=== PATIENT | male | born 1995 | race Caucasian/White ===

== ENCOUNTER 2016-12-05 17:00 | Emergency (ER) | payer BC, OTHER ==
--- NOTE | 2016-12-05 17:29 | UC ---
Letha Cole Thomas, scribed for Bailey Vo MD on 12/05/16 at 1721 . Complaint Male HPI - HPI Summary HPI Summary: The patient is a 21 y/o M presenting to [facility] c/o a mass above his L testicle that he first noticed yesterday. There are no visible rashes on his skin. There is no concern for an STD. He had not had a previous experience like this. Pt states it is mobile and minimally tender when touches. No analgesia taken. Pt denies fevers, chills. He does not have a PCP. He does not shave. No penile discharge, odor, or itching. No lesions. Denies ongoing dysuria, hematuria. No fevers, chills. No back pain. Pt additionally complains of dysuria (once, beginning of stream). No pain with erection. PMHx: asthma. PSHx: none. SHx: former smoking, occasional drinking, no illicit drugs. FHx: something similar to what I have right now on scrotum (father). Patients medications are reviewed this visit. - History of Current Complaint Chief Complaint: UCGU Stated Complaint: MASS/LT TESTICLE Time Seen by Provider: 12/05/16 17:11 Hx Obtained From: Patient Onset/Duration: Lasting Days - first noticed 1 day ago, Still Present Timing: Constant, Lasting Hours Pain Intensity: 0 Pain Scale Used: 0-10 Numeric Location: Testicle - above L testicle Associated Signs And Symptoms: Positive: Dysuria. Negative: Back Pain, Fever, Penile Discharge - Allergies/Home Medications Allergies/Adverse Reactions: Allergies Allergy/AdvReac Type Severity Reaction Status Date / Time Amoxicillin Allergy Intermediate Hives Unverified 11/12/13 13:48 PMH/Surg Hx/FS Hx/Imm Hx Previously Healthy: No Respiratory History: Asthma - Surgical History Surgical History: None - Family History Known Family History: Positive: Other - POS: "something like a mass" on L testicle (father) - Social History Alcohol Use: Occasionally Substance Use Type: None Smoking Status (MU): Former Smoker Review of Systems Constitutional: Negative Skin: Negative Eyes: Negative ENT: Negative Respiratory: Negative Cardiovascular: Negative Gastrointestinal: Negative Genitourinary: Dysuria - once, beginning of stream, Other - POS: mass above left testicle, noticed yesterday Motor: Negative Neurovascular: Negative Musculoskeletal: Negative Neurological: Negative Psychological: Negative All Other Systems Reviewed And Are Negative: Yes Physical Exam Triage Information Reviewed: Yes Appearance: Well-Appearing, No Pain Distress, Well-Nourished Vital Signs: Initial Vital Signs Temp 99.5 F 12/05/16 17:05 Pulse 89 12/05/16 17:05 Resp 16 12/05/16 17:05 Pulse Ox 100 12/05/16 17:05 Vital Signs Reviewed: Yes Eye Exam: Normal Eyes: Negative: Discharge ENT: Positive: Hearing grossly normal Neck: Positive: Supple, Nontender Respiratory: Positive: No respiratory distress, No accessory muscle use Abdomen Description: Positive: Soft, Other: - genetalia exam with RN chapperi testes down b/l no hernia No discharge, lesions, odor non tender testes non tender epidymitis Pt with small, minimally tender mobile lesion medial, anterior aspect of left testicle no edema. Negative: Nontender, CVA Tenderness (R), CVA Tenderness (L), Distended, Guarding Bowel Sounds: Positive: Present Musculoskeletal Exam: Normal Musculoskeletal: Positive: Strength Intact Neurological Exam: Normal Psychological Exam: Normal Skin Exam: Normal Complaint Male Course/Dx - Course Course Of Treatment: Pt with mobile, minimally tender lesion on left testicle first noted yesterday. Pt without other symptoms or concerns. d/w pt at length - unable to get us today at [facility]. Pt does not have PCP for f/u. Pt given option to return to [facility] tomorrow vs go to ED tonight. Pt with work conflict tomorrow so will go to ED for study. Pt declined EMS transfer - Differential Dx/Diagnosis Provider Diagnoses: scrotal nodule Discharge - Discharge Plan Condition: Stable Disposition: TRANS [facility] Patient Education Materials: Testicle Pain (ED) Referrals: Ilene Singh MD [Primary Care Provider] - Additional Instructions: IT is recommended you go to the emergency department for an ultrasound and further evaluation of your left testicle. Alternatively you may return here tomorrow during normal business hours Okay to take Tylenol or ibuprofen as needed for pain and discomfort The documentation as recorded by the Letha mace Thomas accurately reflects the service I personally performed and the decisions made by , Bailey Vo MD.
== END 2016-12-05 17:32 | disposition short-term general hospital (02) ==
LOC: UCEAST 17:00
DX: N49.2 Inflammatory disorders of scrotum (principal)
CPT/HCPCS: 99212; G0463

== ENCOUNTER 2016-12-05 17:57 | Emergency (ER) | payer OTHER ==
[2016-12-05 19:13] LABS: Urine Bilirubin Negative (Negative); Urine Glucose Negative (Negative); Urine Nitrite Negative (Negative)
--- NOTE | 2016-12-05 19:32 | RAD ---
HISTORY: Testicular mass COMPARISONS: None TECHNIQUE: Multiple transverse and longitudinal ultrasound images were obtained of the scrotum, using grayscale, color Doppler, and spectral Doppler imaging. FINDINGS: RIGHT: RIGHT TESTICLE: The right testicle measures 4.4 x 2.3 x 3.2 cm. The right testicle is homogeneous in echotexture, without testicular parenchymal mass. Normal arterial and venous waveforms are identified within the right testicle on spectral Doppler imaging. RIGHT EPIDIDYMIS: The right epididymis measures 1.3 cm at the head. There is a 0.2 cm ependymal cyst. RIGHT SCROTUM: There is no hydrocele or varicocele. LEFT: LEFT TESTICLE: The left testicle measures 4.3 x 2.4 x 3.1 cm. The left testicle is homogeneous in echotexture, without testicular parenchymal mass. Normal arterial and venous waveforms are identified within the left testicle on spectral Doppler imaging. LEFT EPIDIDYMIS: The left epididymis measures 1.3 cm at the head. There is a 0.7 cm cyst of the epididymal head. LEFT SCROTUM: There is trace left hydrocele. OTHER: None IMPRESSION: 1. NO TESTICULAR PARENCHYMAL MASS. 2. NO SONOGRAPHIC FEATURES OF TORSION. PLEASE NOTE THAT PARTIAL OR INTERMITTENT TORSION MAY BE SONOGRAPHICALLY NORMAL. 3. EPIDIDYMAL HEAD CYSTS. 4. TRACE LEFT HYDROCELE.
--- NOTE | 2016-12-05 19:49 | ED ---
GI/ HPI - HPI Summary HPI Summary: 21M presents with testicular mass yesterday. He denies any chance of STD or penile discharge. He states the area is nontender. He denies any itching or lesions present. He states that he has an one episode of dysuria. He denies any hematuria, frequency, urgency, flank pain, n/v/d/c. He has not taken any pain medication. He has never had this before. He denies any fever. He states his father had a testicular mass at one point. - History of Current Complaint Chief Complaint: EDGeneral Time Seen by Provider: 12/05/16 18:30 Stated Complaint: TESTICULAR MASS-SENT FROM [facility] Pain Intensity: 0 - Allergy/Home Medications Allergies/Adverse Reactions: Allergies Allergy/AdvReac Type Severity Reaction Status Date / Time Amoxicillin Allergy Intermediate Hives Unverified 11/12/13 13:48 PMH/Surg Hx/FS Hx/Imm Hx Endocrine/Hematology History: Denies: Hx Diabetes Cardiovascular History: Reports: Hx Hypertension - no meds Denies: Hx Pacemaker/ICD Respiratory History: Reports: Hx Asthma Sensory History: Denies: Hx Hearing Aid Psychiatric History: Denies: Hx Panic Disorder Infectious Disease History: Yes Infectious Disease History: Denies: Hx Clostridium Difficile, Hx Hepatitis, Hx Human Immunodeficiency Virus (HIV), Hx of Known/Suspected MRSA, Hx Shingles, Hx Tuberculosis, Hx Known/ Suspected VRE, Hx Known/Suspected VRSA, History Other Infectious Disease, Traveled Outside the in Last 30 Days - Family History Known Family History: Positive: Other - POS: "something like a mass" on L testicle (father) - Social History Alcohol Use: Occasionally Substance Use Type: Reports: None Smoking Status (MU): Former Smoker Review of Systems Negative: Fever Negative: Chest Pain Negative: Shortness Of Breath Negative: Abdominal Pain, Vomiting, Diarrhea, Nausea Positive: other - testicular mass All Other Systems Reviewed And Are Negative: Yes Physical Exam Triage Information Reviewed: Yes Vital Signs On Initial Exam: Initial Vitals Temp Pulse Resp BP Pulse Ox 98.2 F 89 18 154/79 99 12/05/16 17:59 12/05/16 17:59 12/05/16 17:59 12/05/16 17:59 12/05/16 17:59 Vital Signs Reviewed: Yes Appearance: Positive: Well-Appearing Skin: Positive: Warm, Dry Head/Face: Positive: Normal Head/Face Inspection Eyes: Positive: Normal, Conjunctiva Clear ENT: Positive: Normal ENT inspection, Pharynx normal, TMs normal Respiratory/Lung Sounds: Positive: Clear to Auscultation, Breath Sounds Present Cardiovascular: Positive: Normal, RRR Abdomen Description: Positive: Nontender, Soft Bowel Sounds: Positive: Present Diagnostics - Vital Signs Vital Signs Temp Pulse Resp BP Pulse Ox 12/05/16 18:45 98.3 F 96 18 143/74 99 12/05/16 17:59 98.2 F 89 18 154/79 99 - Laboratory Lab Results: Lab Results 12/05/16 Range/Units 19:00 Urine Color Yellow Urine Appearance Cloudy Urine pH 5.0 (5-9) Ur Specific [place] 1.029 (1.010-1.030) Urine Protein Negative (Negative) Urine Ketones Trace H (Negative) Urine Blood Negative (Negative) Urine Nitrate Negative (Negative) Urine Bilirubin Negative (Negative) Urine Urobilinogen Negative (Negative) Ur Leukocyte Esterase Negative (Negative) Urine Glucose Negative (Negative) Lab Statement: Any lab studies that have been ordered have been reviewed, and results considered in the medical decision making process. - Ultrasound No standard instances Ultrasound Interpretation: Positive (See Comments) - IMPRESSION: 1. NO TESTICULAR PARENCHYMAL MASS. 2. NO SONOGRAPHIC FEATURES OF TORSION. PLEASE NOTE THAT PARTIAL OR INTERMITTENT TORSION MAY BE SONOGRAPHICALLY NORMAL. 3. EPIDIDYMAL HEAD CYSTS. 4. TRACE LEFT HYDROCELE. Ultrasound Interpretation Completed By: Mayelin CABELLO Course/Dx - Course Course Of Treatment: 21M presents with testicular mass yesterday. He denies any chance of STD or penile discharge. He states the area is nontender. He denies any itching or lesions present. He states that he has an one episode of dysuria. He denies any hematuria, frequency, urgency, flank pain, n/v/d/c. He has not taken any pain medication. He has never had this before. He denies any fever. on exam no lymphadenopathy, abdomen nontender, testicular exam performed at urgent care so did not repeat. u/s shows epididymal cyst. explained that this is benign and that should establish care with primary. patient understands and agrees with plan - Diagnoses Differential Diagnoses - Male: Epididymitis, Testicular Torsion, Other - testicular CA, cyst Provider Diagnoses: Epididymal cyst Discharge - Discharge Plan Condition: Good Disposition: HOME Patient Education Materials: Hydrocele (ED) Referrals: [facility] PHYSICIAN REFERRAL [Outside] Additional Instructions: Establish care with primary care physician Return to ED if develop any new or worsening symptoms
[2016-12-05 20:09] VITALS: BP 127/63
== END 2016-12-05 20:05 | disposition home or self-care (01) ==
LOC: ED 17:57
DX: N50.3 Cyst of epididymis (principal); N50.9 Disorder of male genital organs, unspecified; R19.05 Periumbilic swelling, mass or lump; Z87.891 Personal history of nicotine dependence
CPT/HCPCS: 76870; 81003; 99281

== ENCOUNTER 2018-02-22 17:40 | Emergency (ER) | payer OTHER ==
--- NOTE | 2018-02-22 18:35 | UC ---
Throat Pain/Nasal Arash HPI - HPI Summary HPI Summary: Pt presents to with mom. Pt recently completed a zpack for sinus congestion. Pt reports ongoing sore throat and cough. PT reports PND. Pt denies fever, chills. Pt states has pulling feeling left upper chest with deep breath and turn cough. Pt with productive cough intermittently no rdz, vision changes pt without rdz + sick contact Pt has used OTC meds with mild improvement. Pt concerned had strep Pt's BP elevated - states has been high before - recommend PCP f/u medications reviewed - History of Current Complaint Chief Complaint: UCGeneralIllness Stated Complaint: SORE THROAT Time Seen by Provider: 02/22/18 18:34 Hx Obtained From: Patient, Family/Photograph Enlarger Onset/Duration: Gradual Onset Pain Intensity: 0 - Allergies/Home Medications Allergies/Adverse Reactions: Allergies Allergy/AdvReac Type Severity Reaction Status Date / Time amoxicillin Allergy Hives Verified 02/22/18 18:17 Home Medications: Home Medications Azithromycin TAB* [Zithromax TAB (Z-FELICIA) 250 mg #6 tabs] 250 mg PO DAILY [History Confirmed 02/22/18] guaiFENesin [Mucinex] 600 mg PO ONCE 02/22/18 [History Confirmed 02/22/18] PMH/Surg Hx/FS Hx/Imm Hx Previously Healthy: Yes - Surgical History Surgical History: None - Family History Known Family History: Positive: Other - POS: "something like a mass" on L testicle (father) - Social History Occupation: Employed Full-time Lives: With Family Alcohol Use: None Substance Use Type: None Smoking Status (MU): Former Smoker Review of Systems Constitutional: Fatigue ENT: Sore Throat, Nasal Discharge, Sinus Congestion Respiratory: Cough All Other Systems Reviewed And Are Negative: Yes Physical Exam - Summary Physical Exam Summary: Vital Signs Reviewed: Yes A+Ox3, no distress, intermittent cough Eyes: Conjunctiva Clear, PEGGY. EOM intact and full ENT: Hearing grossly normal fluid b.l TM, no erythem turbinates inflammed, boggy + PND mmoist, uvula midline, no exudate, no erythema Neck: Positive: Supple + cervical LA L>R Respiratory: Positive: No respiratory distress, No accessory muscle use + CTA throughout no w/r Cardiovascular: RRR nl s1, s2 no m/r CBT <2 sec + TTP left anterior sternal border. no crepitus reproducible with head ROM abd soft + BS nt/nd no guarding, no distension Musculoskeletal Exam: ELMORE x 4 without difficulty Strength Intact, ROM Intact Neurological: Positive: Alert, + sensation throughout Psychological: Positive: Normal Response To Family Skin: Positive: no rash, no ecchymosis Triage Information Reviewed: Yes Vital Signs: Initial Vital Signs Temp 99.8 F 02/22/18 18:19 Pulse 119 02/22/18 18:19 Resp 18 02/22/18 18:19 BP 174/111 02/22/18 18:19 Pulse Ox 100 02/22/18 18:19 Diagnostics - Radiology No standard instances Radiology Interpretation Completed By: Radiologist - Patient Name: GENESIS HICKS Medical Record#: [id number] Ordering Physician: Bailey Vo MD Acct.#: [id number] : 1995 Age: 22 Sex: M Location: [facility] Exam Date: 02/22/18 184 ADM Status: [facility] ER Order Information: CHEST PA & LAT 2 VWS Accession Number: [id number] CPT: 97643 INDICATION: Intermittent chest pain with certain movements and deep inspirations. Cough for one week. Intermittent fever. History of asthma. COMPARISON: March 30, 2003 TECHNIQUE: Dual energy PA and routine lateral views of the chest were obtained. REPORT: Clear lungs and pleural spaces. Negative for pneumothorax. The heart, pulmonary vasculature, and mediastinal contours are unremarkable. Unremarkable osseous structures and soft tissue contours. IMPRESSION: #. No evidence for pneumonia. Negative exam. R0 < Electronically signed by Jj Cardona MD in OV> 02/23/18749 Dictated By: Jj Cardona MD Dictated Date/Time: 02/23/18 075 Transcribed Date/Time: 12/04 0743 Copy to: CC:Bailey Vo MD; No Primary Care Phys,NOPCP Imaging - [facility] Imaging [facility] Imaging [facility] [address], [place] [id number] [place] [id number] ph ([phone]) ph ([phone]) ph ([phone]) This report is only to be considered final once signed by the Provider(s) as displayed in the "<Electronically Signed by >" field (s). Absence of a signature indicates the report is in a draft status and still needs to be finalized. In the event this document was created by someone other than the signing Provider, the individual initiating the document will be listed in the "Entered by:" or "Dictated by:" palacio. 1 of 1 Throat Pain/Nasal Course/Dx - Course Course Of Treatment: Pt with recent treatment for strep cpntinues with PND< cough and sore throat. pt requesting test for strep. Pt with left anterior chest wall reproducible. pt with cough. sterp neg. will check CXR. neb. reassess - Differential Dx/Diagnosis Provider Diagnoses: URI. HTN. chest wall pain Discharge - Sign-Out/Discharge Documenting (check all that apply): Patient Departure All imaging exams completed and their final reports reviewed: Yes - Discharge Plan Condition: Stable Disposition: HOME Prescriptions: Fluticasone NASAL SPRAY 50MCG* [Flonase NASAL SPRAY 50MCG*] 2 spray BOTH NARES DAILY #1 btl Patient Education Materials: Lymphadenopathy (ED), Upper Respiratory Infection (ED), Hypertension (ED) Referrals: No Primary Care Phys,NOPCP [Primary Care Provider] - Additional Instructions: - These infections are spread by oral secretions. Do not share eating or drinking utensils. Frequent hand washing is important. Clean items that may get your secretions on them such as cell phones, ipads, computer mouse, television remotes. Since you have finished your antibiotics, it is recommended you change your pillowcase and your toothbrush - Stay well hydrated. Drink plenty of non-alcoholic, non-caffinated beverages. - Alternate ibuprofen (Advil, Motrin) 600mg and Tylenol every 3 hours for pain or fever. Take with food. Do NOT take for more than 4-5 days. - get plenty of restful sleep - humidify the air in the room where you sleep - boil water, run a hot steam shower, vaporizer, cups of water by heat register - It is recommended you take over the counter allergy medication such as Zyrtec , Maggie, Claritin - do not take pseudoephederine as this can elevate your blood pressure - use nasal spray as prescribed - contact your doctor to discuss your blood pressure - as noted - your blood pressure was very high today - as we discussed, if your lymph node remains swollen and painful after your head congestions symptoms has resolved - it is recommended you follow-up with your doctor - Billing Disposition and Condition Condition: STABLE Disposition: Home
[2018-02-22 18:50] VITALS: BP 172/93
--- NOTE | 2018-02-23 07:53 | RAD ---
INDICATION: Intermittent chest pain with certain movements and deep inspirations. Cough for one week. Intermittent fever. History of asthma. COMPARISON: March 30, 2003 TECHNIQUE: Dual energy PA and routine lateral views of the chest were obtained. REPORT: Clear lungs and pleural spaces. Negative for pneumothorax. The heart, pulmonary vasculature, and mediastinal contours are unremarkable. Unremarkable osseous structures and soft tissue contours. IMPRESSION: #. No evidence for pneumonia. Negative exam. R0
== END 2018-02-22 19:20 | disposition home or self-care (01) ==
LOC: UCEAST 17:40
DX: J06.9 Acute upper respiratory infection, unspecified (principal); I10 Essential (primary) hypertension; R07.89 Other chest pain; Z87.891 Personal history of nicotine dependence; Z88.0 Allergy status to penicillin
CPT/HCPCS: 71046; 87651; 99212; G0463